=== PATIENT | female | born 1980 | race African-American/Black ===

== ENCOUNTER 2016-08-11 09:02 | Emergency (ER) | payer OTHER ==
[2016-08-11] MEDS ORDERED: KETOROLAC TROMETHAMINE 60 MG/2 ML SDV IM ONE (09:54)
--- NOTE | 2016-08-11 10:00 | ER Document Report ---
HPI - HPI Pain Level: 4 Context: 35 yo female presents with 2 separate complaints. #1 sinus pain and congestion x 3 weeks. no fever, + facial pain, + purulent drainage, + sore throat, + cough. Taking OTC decongestants without relief. #2 left low back pain with sciatica x 1 day. + hx/o sciatica, [facility] pt thinks coughing has aggrevated her sciatica. no bowel/bladder change, no paresthesias. walks without difficulty Associated Symptoms: Nonproductive cough, Headache, Sore throat, Other - back pain. denies: Hurts to breath, Nausea, Vomiting Exacerbated by: Movement Relieved by: Denies Similar symptoms previously: Yes Recently seen / treated by doctor: No - REPRODUCTIVE Reproductive: DENIES: : - DERM Skin Color: Normal, [place] Past Medical History - General Information source: Patient - Social History Smoking Status: Current Every Day Smoker Chew tobacco use (# tins/day): No Frequency of alcohol use: Occasional Drug Abuse: None Lives with: Family Family History: Reviewed & Not Pertinent Endocrine Medical History: Reports: Hx Diabetes Mellitus Type 2 - gestational DM x 1 - G2, P2, A0, anemia Renal/ Medical History: Denies: Hx Kidney Stones, Hx Peritoneal Dialysis Musculoskeltal Medical History: Reports Hx Arthritis, Denies Hx Gout, Reports Other - chronic low back pain with sciatica - Immunizations Hx Diphtheria, Pertussis, Tetanus Vaccination: Yes - 2008 [facility] Provider Document - CONSTITUTIONAL Agree With Documented VS: Yes Exam Limitations: No Limitations General Appearance: WD/WN, No Apparent Distress - INFECTION CONTROL TRAVEL OUTSIDE OF THE [place] IN LAST 30 DAYS: No - HEENT HEENT: Atraumatic, PERRLA, Pharyngeal Erythema Notes: + frontal and ethmoid sinus tap tenderness. - NECK Neck: Normal Inspection, Supple - RESPIRATORY Respiratory: Breath Sounds Normal, No Respiratory Distress O2 Sat by Pulse Oximetry: 99 - CARDIOVASCULAR Cardiovascular: Regular Rate, Regular Rhythm - GI/ABDOMEN Gastrointestinal: Abdomen Soft, Abdomen Non-Tender - BACK Back: Abnormal Inspection - + left lumbar paraspinal tenderness. + left SI tenderness. negative SLT. able to change position and walk without difficulty - MUSCULOSKELETAL/EXTREMETIES Musculoskeletal/Extremeties: MAEW, FROM - NEURO Level of Consciousness: Awake, Alert, Appropriate Motor/Sensory: No Motor Deficit, No Sensory Deficit - DERM Integumentary: Warm, Dry Course - Vital Signs Vital signs: Temp Pulse Resp BP Pulse Ox 98.2 F 72 18 130/85 H 99 08/11/16 09:03 08/11/16 09:03 08/11/16 09:03 08/11/16 09:03 08/11/16 09:03 Discharge - Discharge Clinical Impression: Sinusitis Qualifiers: Sinusitis location: unspecified location Chronicity: acute Recurrence: non- recurrent Qualified Code(s): J01.90 - Acute sinusitis, unspecified Low back pain Qualifiers: Chronicity: chronic Back pain laterality: left Sciatica presence: with sciatica Sciatica laterality: sciatica of left side Qualified Code(s): M54.42 - Lumbago with sciatica, left side; G89.29 - Other chronic pain Condition: Stable Disposition: HOME, SELF-CARE Instructions: Sinusitis ([facility]), Antibiotic Therapy ([facility]), Low Back Pain ([facility]), Sciatica ([facility]), Toradol Injection ([facility]), Muscle Relaxers ([facility]), Ibuprofen ( General) ([facility]), Ice Packs ([facility]) Additional Instructions: Adelina, Take all meds as prescribed continue OTC mucinex in addition to prescribed meds push water intake apply ice to painful area on back follow up with your primary care for further evaluation and treatment of your chronic back pain Prescriptions: Amoxicillin 875 mg PO BID #20 tablet Fluconazole [Diflucan] 150 mg PO ONCE PRN #1 tablet PRN Reason: Ibuprofen [Motrin 800 Mg Tablet] 800 mg PO Q6H #20 tablet Methocarbamol [Robaxin 500 Mg Tablet] 1,000 mg PO Q6 #30 tablet Forms: Return to Work
[2016-08-11 10:28] VITALS: BP 127/83
== END 2016-08-11 10:29 | disposition home or self-care (01) ==
LOC: ER 09:02
DX: J01.90 Acute sinusitis, unspecified (principal); M54.42 Lumbago with sciatica, left side; R51 Headache; F17.200 Nicotine dependence, unspecified, uncomplicated
CPT/HCPCS: 99283; 96372; J1885

== ENCOUNTER 2016-09-16 10:51 | Emergency (ER) | payer OTHER ==
--- NOTE | 2016-09-16 11:19 | ER Document Report ---
ED Medical Screen (RME) - General Chief Complaint: Chest Pain Stated Complaint: BACK/CHEST PAIN Time Seen by Provider: 09/16/16 11:04 Mode of Arrival: Ambulatory Notes: Patient presents to the emergency department with left-sided neck pain hurts to turn her head to the left hurts with touch. Patient also reports that her chest hurts in different positions and when she takes a deep breath. EKG SR. She reports the neck starting hurting a couple days ago, the chest hurt this morning. She also complained that her left arm goes numb with different positions. Denies other symptoms such as fever vomiting diarrhea. Denies history of cardiac disease. TRAVEL OUTSIDE OF THE [place] IN LAST 30 DAYS: No - Related Data Allergies/Adverse Reactions: hydrocodone [Hydrocodone] Allergy (Intermediate, Verified 09/16/16 10:53) itching Sulfa (Sulfonamide Antibiotics) Allergy (Verified 09/16/16 10:53) Hives Past Medical History Endocrine Medical History: Reports: Hx Diabetes Mellitus Type 2 - gestational DM x 1 - G2, P2, A0, anemia Renal/ Medical History: Denies: Hx Kidney Stones, Hx Peritoneal Dialysis Musculoskeltal Medical History: Reports Hx Arthritis, Denies Hx Gout - Immunizations Hx Diphtheria, Pertussis, Tetanus Vaccination: Yes - 2008 Physical Exam - Vital signs Vitals: Temp Pulse Resp BP Pulse Ox 98.6 F 61 14 133/78 H 97 09/16/16 10:53 09/16/16 10:53 09/16/16 10:53 09/16/16 10:53 09/16/16 10:53 Course - Vital Signs Vital signs: Temp Pulse Resp BP Pulse Ox 98.6 F 61 14 133/78 H 97 09/16/16 10:53 09/16/16 10:53 09/16/16 10:53 09/16/16 10:53 09/16/16 10:53
--- NOTE | 2016-09-16 12:24 | ER Document Report ---
HPI - HPI Pain Level: 4 Context: Patient is a 35-year-old female comes to the office complaining of left sided neck pain for the last 3 days, midsternal chest pain that began this morning, and an incident of left arm numbness. The neck pain began 3 days ago when she woke up from sleeping. No traumatic incident. The pain will radiate down into her shoulder. Her arm became numb when she tried to stretch her arm and neck out at the same time this morning. She has difficulty turning her head to the left and to the right. Patient describes the discomfort as a spasm and stiff neck. She has not had any other incident of arm numbness. The chest discomfort was first noticed this morning when she tried to take a deep breath. Is able to ambulate without any difficulties. Patient states that she does have a driveway that is up feel that she is able to walk without any problems. The pain is also worsened with upper trunk movement. The pain is described as a soreness. The pain does not radiate. No known trauma. No fever, URI, sore throat, shortness of breath, dyspnea, PND, palpitations, syncope, abdominal pain , N/V/D/C, dysuria, changes in mentation, trouble with gait or balance, muscle weakness, or rash. - ROS Notes: REVIEW OF SYSTEMS: CONSTITUTIONAL : Denies fever, chills, or sweats. Denies recent illness. EENT: Denies eye, ear, throat, or mouth pain or symptoms. Denies nasal or sinus congestion or discharge. Denies throat, tongue, or mouth swelling or difficulty swallowing. CARDIOVASCULAR: see above. Denies palpitations or racing or irregular heart beat. Denies ankle edema. RESPIRATORY: Denies cough, cold, or chest congestion. Denies shortness of breath, difficulty breathing, or wheezing. GASTROINTESTINAL: Denies abdominal pain or distention. Denies nausea, vomiting , or diarrhea. Denies blood in vomitus, stools, or per rectum. Denies black, tarry stools. Denies constipation. GENITOURINARY: Denies difficulty urinating, painful urination, burning, frequency, blood in urine, or discharge. MUSCULOSKELETAL: see above. SKIN: Denies rash, lesions or sores. HEMATOLOGIC : Denies easy bruising or bleeding. LYMPHATIC: Denies swollen, enlarged glands. NEUROLOGICAL: Denies confusion or altered mental status. Denies passing out or loss of consciousness. Denies dizziness or lightheadedness. Denies headache. Denies weakness or paralysis or loss of use of either side. Denies problems with gait or speech. Denies sensory loss, numbness, or tingling. Denies seizures. PSYCHIATRIC: Denies anxiety or stress. Denies depression, suicidal ideation, or homicidal ideation. ALL OTHER SYSTEMS REVIEWED AND NEGATIVE. Dictation was performed using [employer] voice recognition software - REPRODUCTIVE Reproductive: DENIES: : - DERM Skin Color: Normal Past Medical History - Social History Smoking Status: Current Every Day Smoker - smoking cessation counseling 2 mins Smoking Education Provided: Yes - 2 minutes Family History: Reviewed & Not Pertinent Patient has suicidal ideation: No Patient has homicidal ideation: No Endocrine Medical History: Reports: Hx Diabetes Mellitus Type 2 - gestational DM x 1 - G2, P2, A0, anemia Renal/ Medical History: Denies: Hx Kidney Stones, Hx Peritoneal Dialysis Musculoskeltal Medical History: Reports Hx Arthritis, Denies Hx Gout - Immunizations Hx Diphtheria, Pertussis, Tetanus Vaccination: Yes - 2008 [facility] Provider Document - CONSTITUTIONAL Notes: PHYSICAL EXAMINATION: GENERAL: Well-appearing, well-nourished and in no acute distress. HEAD: Atraumatic, normocephalic. EYES: Pupils equal round and reactive to light, extraocular movements intact, conjunctiva are normal. ENT: Nares patent, oropharynx clear without exudates. Moist mucous membranes. EAC's clear bilaterally. TMs intact bilaterally without erythema fluid or perforation. No tonsillar hypertrophy or erythema. No sinus tenderness. NECK: LROM to left lateral rotation > Rt lateral rotation. No deformity noted, ecchymosis, erythema, or abrasion. Spurling negative. + tenderness to palpation of the left paraspinal c-spine mm. + tenderness into the trapezius mm as well. LUNGS: Breath sounds clear to auscultation bilaterally and equal. No wheezes rales or rhonchi. Chest: No erythema, abrasion, ecchymosis, or deformity noted. + tenderness to palpation of the costochondral area near rib(s) 3-4. Tenderness elicited corresponds to the pain described. HEART: Regular rate and rhythm without murmurs ABDOMEN: Soft, nontender, nondistended abdomen. No guarding, no rebound. No masses appreciated. Normal bowel sounds present. CVA tenderness negative bilaterally. Musculoskeletal: FROM to passive/active shoulders/arms b/l. Strength 5+/5. Non- tender. Sensation intact. 2+ periph pulses. 2+ reflexes. Extremities: No cyanosis/clubbing/edema b/l. Peripheral pulses 2+. Capillary refill less than 3 seconds. NEUROLOGICAL: Cranial nerves grossly intact. Normal speech, normal gait. Normal sensory, motor exams PSYCH: Normal mood, normal affect. SKIN: Warm, Dry, normal turgor, no rashes or lesions noted. - INFECTION CONTROL TRAVEL OUTSIDE OF THE [place] IN LAST 30 DAYS: No - RESPIRATORY O2 Sat by Pulse Oximetry: 97 Course - Re-evaluation Re-evalutation: Adelina is a 35-year-old female who presents with suspected cervicalgia and costochondritis based on H&P. She is in no acute distress and vital signs are stable. EKG shows normal sinus rhythm without any significant ST-T changes. We will send her for a C-spine x-ray. We will wait for the formal read before discharge. Pending negative x-ray we will treat her conservatively with Flexeril and Mobic. She is advised not to drive or operate heavy machinery while on the Flexeril. She is instructed to use a more supportive pillow at night. She is to perform light stretches daily with the use of ice and heat. Light massage may help. I would [facility] for [facility]. I will tentatively place her on light duty until her [facility] the [facility]. If she notices any worsening symptoms of shortness of breath, chest pain, trouble breathing, fever, pain, and/or stiffness to return to the ED and call her PCM. Patient in agreement with plan. 09/16/16 12:30 09/16/16 13:18 C-spine x-ray impression: No significant radiographic findings in the cervical spine. Patient to be discharged as directed above. 09/16/16 13:20 After performing a Medical Screening Examination, I estimate there is LOW risk for RUPTURED ESOPHAGUS, PNEUMOTHORAX, PULMONARY EMBOLISM, ACUTE CORONARY SYNDROME, OR THORACIC AORTIC DISSECTION, thus I consider the discharge disposition reasonable. I have reevaluated this patient multiple times and no significant life threatening changes are noted. The patient and I have discussed the diagnosis and risks, and we agree with discharging home with close follow-up. We also discussed returning to the Emergency Department immediately if new or worsening symptoms occur. We have discussed the symptoms which are most concerning (e.g., bloody sputum, worsening pain or shortness of breath) that necessitate immediate return. 09/16/16 13:21 09/16/16 13:24 - Vital Signs Vital signs: Temp Pulse Resp BP Pulse Ox 98.6 F 61 14 133/78 H 97 09/16/16 10:53 09/16/16 10:53 09/16/16 10:53 09/16/16 10:53 09/16/16 10:53 Discharge - Discharge Clinical Impression: Cervicalgia, Costochondritis, acute Condition: Stable Disposition: HOME, SELF-CARE Instructions: Chest Wall Pain ([facility]) Additional Instructions: Muscle Relaxers Muscle relaxing medications are usually prescribed for acute muscle spasm or injury to the neck and back. They are often combined with antiinflammatory pain medication for increased relief. You may stop the muscle relaxer when the pain and stiffness have improved. Start the medication again if spasms recur. Muscle relaxers may cause drowsiness, especially with the first dose. Do not operate machinery or drive while under the effects of the medication. Most muscle relaxers last up to 24 hours. Do not combine the medication with alcohol. Neck pain supportive pillow at night. perform light stretches daily with the use of ice and heat. tylenol/mobic as needed for pain. [facility]. If any worsening shortness of breath, chest pain, trouble breathing, fever, pain, and/or stiffness to return to the ED and call your PCM. Prescriptions: Cyclobenzaprine HCl [Flexeril 10 mg Tablet] 10 mg PO TIDP PRN #15 tab PRN Reason: Meloxicam [Mobic 7.5 Mg Tablet] 7.5 mg PO BID PRN #30 tablet PRN Reason: Forms: Smoking Cessation Education
--- NOTE | 2016-09-16 13:07 | RADIOLOGY REPORT (SQ) ---
EXAM DESCRIPTION: CERV SP 4 OR 5 VIEWS COMPLETED DATE/TIME: 09/16/2016 12:58 pm REASON FOR STUDY: cervicalgia (left sided) COMPARISON: None. NUMBER OF VIEWS: Five views. TECHNIQUE: AP, lateral, obliques and odontoid radiographic images acquired of the cervical spine. LIMITATIONS: None. FINDINGS: MINERALIZATION: Normal. ALIGNMENT: Anatomic. VERTEBRAE: Vertebral bodies of normal height. DISCS: No significant osteophytes or sclerosis. Disc height maintained. FORAMINA: No osteophytes or foraminal narrowing. LATERAL AND POSTERIOR ELEMENTS: Facets, lateral masses and spinous processes without significant find ings. HARDWARE: None in the spine. SOFT TISSUES: No masses or calcifications. Lung apices clear. OTHER: No other significant finding. IMPRESSION: NO SIGNIFICANT RADIOGRAPHIC FINDING IN THE CERVICAL SPINE. TECHNICAL DOCUMENTATION: JOB ID: [id number] [employer]- All Rights Reserved
[2016-09-16 13:45] VITALS: BP 125/79
--- NOTE | 2016-09-17 08:57 | EKG REPORT ---
SEVERITY:- BORDERLINE ECG - SINUS RHYTHM [facility] : Confirmed by: Vira Garcia 17-Sep-2016 08:56:39
== END 2016-09-16 13:46 | disposition home or self-care (01) ==
LOC: ER 10:51
DX: M54.2 Cervicalgia (principal); M94.0 Chondrocostal junction syndrome [Tietze]; R07.9 Chest pain, unspecified; F17.200 Nicotine dependence, unspecified, uncomplicated
CPT/HCPCS: 72050; 93005; 93010; 99285

== ENCOUNTER 2016-09-17 16:41 | Emergency (ER) | payer OTHER ==
[2016-09-17] MEDS ORDERED: HYDROMORPHONE HCL INJ/PF 2 MG/ML AMPULE IM ONE (17:31)
--- NOTE | 2016-09-17 17:33 | ER Document Report ---
HPI - HPI Patient complains to provider of: Neck pain Onset: Other - 5 days Onset/Duration: Persistent Quality of pain: Sharp Pain Level: 5 Context: Patient states that she woke up with neck pain 5 days ago. Patient states since then she has had continued neck pain. Patient denies any injury. Patient states pain worsens whenever she rotates her head laterally. Pt Was seen for this complaint recently and placed on Mobic and Flexeril. Patient denies any improvement of her symptoms. Associated Symptoms: Other - neck pain. denies: Fever, Headache Exacerbated by: Movement Relieved by: Denies Similar symptoms previously: Yes Recently seen / treated by doctor: Yes - ROS ROS below otherwise negative: Yes Systems Reviewed and Negative: Yes All other systems reviewed and negative - CONSTITUTIONAL Constitutional: DENIES: Fever, Chills - NEURO Neurology: DENIES: Headache, Weakness - CARDIOVASCULAR Cardiovascular: DENIES: Chest pain - RESPIRATORY Respiratory: DENIES: Coughing - GASTROINTESTINAL Gastrointestinal: DENIES: Nausea, Patient vomiting - REPRODUCTIVE Reproductive: DENIES: : - MUSCULOSKELETAL Musculoskeletal: REPORTS: Back Pain, Neck Pain - DERM Skin Color: Normal Skin Problems: None Past Medical History - General Information source: Patient - Social History Smoking Status: Current Every Day Smoker Frequency of alcohol use: None Drug Abuse: None Occupation: shipping Lives with: Family Family History: Reviewed & Not Pertinent Patient has suicidal ideation: No Patient has homicidal ideation: No Endocrine Medical History: Reports: Hx Diabetes Mellitus Type 2 - gestational DM x 1 - G2, P2, A0, anemia Renal/ Medical History: Denies: Hx Kidney Stones, Hx Peritoneal Dialysis Musculoskeltal Medical History: Reports Hx Arthritis, Denies Hx Gout Surgical Hx: Negative - Immunizations Hx Diphtheria, Pertussis, Tetanus Vaccination: Yes - 2009 [employer] Provider Document - CONSTITUTIONAL Agree With Documented VS: Yes Exam Limitations: No Limitations General Appearance: WD/WN, No Apparent Distress - INFECTION CONTROL TRAVEL OUTSIDE OF THE [place] IN LAST 30 DAYS: No - HEENT HEENT: Atraumatic, Normocephalic - NECK Neck: negative: Lymphadenopathy-Left, Lymphadenopathy-Right - RESPIRATORY Respiratory: Breath Sounds Normal, No Respiratory Distress O2 Sat by Pulse Oximetry: 98 - CARDIOVASCULAR Cardiovascular: Regular Rate, Regular Rhythm, No Murmur Pulses: Normal: Radial - BACK Back: Abnormal Inspection - left trapezius muscle tenderness, spasm - MUSCULOSKELETAL/EXTREMETIES Musculoskeletal/Extremeties: NENA, FROM Notes: normal strength bilat UE 5/5 - NEURO Level of Consciousness: Awake, Alert, Appropriate Motor/Sensory: No Motor Deficit, No Sensory Deficit - DERM Integumentary: Warm, Dry, No Rash Course - Re-evaluation Re-evalutation: 09/17/16 17:[address] owens who advises getting ct cervical spine 09/17/16 19:00 The patient has been informed that they may have pre-hypertension or hypertension based on a blood pressure reading in the emergency department. I recommend that patient call the primary care provider listed on their discharge instructions or a physician of their choice by this week to arrange follow-up for further evaluation of possible pre-hypertension her hypertension. Pt given a copy of her CT report, patient encouraged to follow-up with her primary doctor for further evaluation of thyroid mass. Patient verbalized understanding and agrees with plan of care. Plan of care regarding patient's cervicalgia, suspect patient is having muscle spasm without any concern for spinal cord abnormality at this time. Discussed plan of care with patient, patient verbalized understanding and agrees with plan of care. 09/17/16 21:14 - Vital Signs Vital signs: Temp Pulse Resp BP Pulse Ox 98.5 F 61 16 142/99 H 98 09/17/16 16:45 09/17/16 16:45 09/17/16 16:45 09/17/16 16:45 09/17/16 16:45 - Diagnostic Test Radiology reviewed: Reports reviewed Discharge - Discharge Clinical Impression: Thyroid nodule, Trapezius muscle spasm Cervical strain, acute Qualifiers: Encounter type: initial encounter Qualified Code(s): S16.1XXA - Strain of muscle, fascia and tendon at neck level, initial encounter Condition: Stable Disposition: HOME, SELF-CARE Instructions: Muscle Strain ([facility]), Neck Injury (Cervical Strain) ([facility]), Oral Narcotic Medication ([facility]), Growth or Mass, Pending Workup ([facility]) Additional Instructions: Return immediately for any new or worsening symptoms Followup with your primary care provider, call tomorrow to make a followup appointment Follow-up with your primary care provider to recheck your blood pressure, it was mildly elevated today. Follow up with your primary doctor for further evaluation of thyroid nodule, call Tuesday for an appointment Prescriptions: Oxycodone HCl/Acetaminophen [Percocet 5-325 mg Tablet] 1 - 2 tab PO ASDIR PRN # 20 tablet PRN Reason: Referrals: [facility] [Provider Group] - 09/20/16
--- NOTE | 2016-09-17 18:10 | RADIOLOGY REPORT (SQ) ---
EXAM DESCRIPTION: CT CERVICAL SPINE WITHOUT COMPLETED DATE/TIME: 09/17/2016 5:59 pm REASON FOR STUDY: neck pain, L arm pain COMPARISON: None. TECHNIQUE: Axial images acquired through the cervical spine without intravenous contrast. Images re viewed with lung, soft tissue and bone windows. Reconstructed coronal and sagittal MPR images review ed. Images stored on PACS. All CT scanners at this facility use dose modulation, iterative reconstruction, and/or weight based d osing when appropriate to reduce radiation dose to as low as reasonably achievable (ALARA). [facility]: Dose Right [facility]: CareDose [facility]: Dose Right [facility]: Teradose 4D [facility]: Quofore RADIATION DOSE: 22.29 mGy. LIMITATIONS: None. FINDINGS: ALIGNMENT: Anatomic. MINERALIZATION: Normal. VERTEBRAL BODIES: No fractures or dislocation. DISCS: No significant disc disease. FACETS, LATERAL MASSES, POSTERIOR ELEMENTS: No fractures. No dislocation. No acute findings. HARDWARE: None in the spine. VISUALIZED RIBS: No fractures. LUNG APICES AND SOFT TISSUES: No significant or acute findings. OTHER: There is a large low-density nodule in the right lobe of the thyroid gland. This measures 24 mm. IMPRESSION: 1. Normal cervical spine. There are no findings to explain the patient's symptoms. 2. Large right thyroid nodule. TECHNICAL DOCUMENTATION: JOB ID: [id number] Quality ID # [id number]: Final reports with documentation of one or more dose reduction techniques (e.g., Au tomated exposure control, adjustment of the mA and/or kV according to patient size, use of iterative reconstruction technique) 2010 [employer]- All Rights Reserved
[2016-09-17 19:19] VITALS: BP 150/87
== END 2016-09-17 19:21 | disposition home or self-care (01) ==
LOC: ER 16:41
DX: S16.1XXA Strain of muscle, fascia and tendon at neck level, initial encounter (principal); M54.2 Cervicalgia; E04.1 Nontoxic single thyroid nodule; M62.830 Muscle spasm of back; X58.XXXA Exposure to other specified factors, initial encounter; F17.200 Nicotine dependence, unspecified, uncomplicated
CPT/HCPCS: 99283; 96372; 72125; J1170

== ENCOUNTER 2016-11-03 08:28 | Emergency (ER) | payer OTHER ==
--- NOTE | 2016-11-03 10:19 | ER Document Report ---
ED GI/ - General Chief Complaint: Nausea/Vomiting/Diarrhea Stated Complaint: POSSIBLE ALLERGIC REACTION Time Seen by Provider: 11/03/16 09:18 Mode of Arrival: Ambulatory Information source: Patient Notes: Patient is a 36-year-old female who presents to the ER today for nausea, vomiting, diarrhea that began when she woke up at 6 AM this morning. She denies any abdominal pain. She does state that she woke up "covered in sweat." She admits that 2 and half episodes of vomiting and one episode of runny stool this morning. She is unsure if it is because she tried Robaxin for the first time last night before bedtime for her chronic back pain that was just prescribed by the [facility]. Patient states that her meloxicam actually worked better but that they have stopped sending that her. She denies any fevers, chills, sick contacts that she knows of. TRAVEL OUTSIDE OF THE [place] IN LAST 30 DAYS: No - Related Data Allergies/Adverse Reactions: hydrocodone [Hydrocodone] Allergy (Intermediate, Verified 11/03/16 08:29) itching Sulfa (Sulfonamide Antibiotics) Allergy (Verified 11/03/16 08:29) Hives Past Medical History - General Information source: Patient - Social History Smoking Status: Current Every Day Smoker Chew tobacco use (# tins/day): No Frequency of alcohol use: None Drug Abuse: None Family History: Reviewed & Not Pertinent Patient has suicidal ideation: No Patient has homicidal ideation: No Endocrine Medical History: Reports: Hx Diabetes Mellitus Type 2 - gestational DM x 1 - G2, P2, A0, anemia Renal/ Medical History: Denies: Hx Kidney Stones, Hx Peritoneal Dialysis Musculoskeltal Medical History: Reports Hx Arthritis, Denies Hx Gout Surgical Hx: Negative - Immunizations Hx Diphtheria, Pertussis, Tetanus Vaccination: Yes - 2008 Review of Systems - Review of Systems Constitutional: See HPI EENT: No symptoms reported Cardiovascular: No symptoms reported Respiratory: No symptoms reported Gastrointestinal: See HPI Genitourinary: No symptoms reported Female Genitourinary: No symptoms reported Musculoskeletal: No symptoms reported Skin: No symptoms reported Hematologic/Lymphatic: No symptoms reported Neurological/Psychological: No symptoms reported Physical Exam - Vital signs Vitals: Temp Pulse Resp BP Pulse Ox 97.9 F 66 18 146/93 H 99 11/03/16 08:37 11/03/16 08:37 11/03/16 08:37 11/03/16 08:37 11/03/16 08:37 - Notes Notes: PHYSICAL EXAMINATION: GENERAL: Well-appearing and in no acute distress. HEAD: Atraumatic, normocephalic. EYES: Pupils equal round and reactive to light, extraocular movements intact, sclera anicteric, conjunctiva are normal. ENT: ear canals without erythema or foreign body, TMs pearly hernandes with good bony landmarks, nares patent, oropharynx clear without exudates. Moist mucous membranes. NECK: Normal range of motion, supple without lymphadenopathy LUNGS: CTAB and equal. No wheezes rales or rhonchi. HEART: Regular rate and rhythm without murmurs ABDOMEN: Soft, no tenderness. No guarding, no rebound BACK: no vertebral tenderness, normal ROM GI/: no CVA tenderness EXTREMITIES: Normal range of motion, no pitting edema. No cyanosis. NEUROLOGICAL: Cranial nerves grossly intact. Normal sensory/motor exams. PSYCH: Normal mood, normal affect. SKIN: Warm, Dry, normal turgor, no rashes or lesions noted Course - Vital Signs Vital signs: Temp Pulse Resp BP Pulse Ox 97.9 F 66 18 146/93 H 99 11/03/16 08:37 11/03/16 08:37 11/03/16 08:37 11/03/16 08:37 11/03/16 08:37 Discharge - Discharge Clinical Impression: Nausea & vomiting Qualifiers: Vomiting type: unspecified Vomiting Intractability: non-intractable Qualified Code(s): R11.2 - Nausea with vomiting, unspecified Diarrhea Qualifiers: Diarrhea type: unspecified type Qualified Code(s): R19.7 - Diarrhea, unspecified Condition: Stable Disposition: HOME, SELF-CARE Additional Instructions: Return immediately for any new or worsening symptoms. Follow up with primary care provider, call tomorrow to make followup appointment. Prescriptions: Meloxicam 7.5 mg PO BID #30 tablet Ondansetron [Zofran Odt 4 mg Tablet] 1 - 2 tab PO Q4H PRN #15 tab.rapdis PRN Reason: For Nausea/Vomiting Forms: Return to Work
[2016-11-03 10:30] VITALS: BP 153/110
== END 2016-11-03 10:26 | disposition home or self-care (01) ==
LOC: ER 08:28
DX: R11.2 Nausea with vomiting, unspecified (principal); R19.7 Diarrhea, unspecified; G89.29 Other chronic pain; M54.9 Dorsalgia, unspecified; Z88.2 Allergy status to sulfonamides; F17.200 Nicotine dependence, unspecified, uncomplicated; Z88.6 Allergy status to analgesic agent
CPT/HCPCS: 99283

== ENCOUNTER 2017-06-03 06:58 | Emergency (ER) | payer OTHER ==
[2017-06-03] MEDS ORDERED: METHYLPREDNISOLONE INJ 125 MG/2 ML SDV IM ONE (08:19)
--- NOTE | 2017-06-03 08:20 | ER Document Report ---
ED Neck/Back Problem - General Chief Complaint: Back Pain Stated Complaint: FALL, BACK PAIN Time Seen by Provider: 06/03/17 07:42 Mode of Arrival: Ambulatory Information source: Patient Notes: Patient is a 36-year-old female who presents to the ER today for low back pain and left-sided sciatica. Patient states that this caused her left leg to give out on her and she fell 2 days ago, injuring the left lower back more. Patient has a history of sciatica and takes Robaxin daily for it. Patient states that her legs have given out before with her sciatica symptoms. She denies any loss of bladder or bowel function. TRAVEL OUTSIDE OF THE [place] IN LAST 30 DAYS: No - Related Data Allergies/Adverse Reactions: hydrocodone [Hydrocodone] Allergy (Intermediate, Verified 11/03/16 08:29) itching Sulfa (Sulfonamide Antibiotics) Allergy (Verified 11/03/16 08:29) Hives Past Medical History - General Information source: Patient - Social History Smoking Status: Unknown if Ever Smoked Chew tobacco use (# tins/day): No Frequency of alcohol use: Rare Drug Abuse: None Family History: Reviewed & Not Pertinent Patient has suicidal ideation: No Patient has homicidal ideation: No Endocrine Medical History: Reports: Hx Diabetes Mellitus Type 2 - gestational DM x 1 - G2, P2, A0, anemia Renal/ Medical History: Denies: Hx Kidney Stones, Hx Peritoneal Dialysis Musculoskeltal Medical History: Reports Hx Arthritis, Denies Hx Gout - Immunizations Hx Diphtheria, Pertussis, Tetanus Vaccination: Yes - 2008 Review of Systems - Review of Systems Constitutional: No symptoms reported EENT: No symptoms reported Cardiovascular: No symptoms reported Respiratory: No symptoms reported Gastrointestinal: No symptoms reported Genitourinary: No symptoms reported Female Genitourinary: No symptoms reported Musculoskeletal: See HPI Skin: No symptoms reported Hematologic/Lymphatic: No symptoms reported Neurological/Psychological: No symptoms reported Physical Exam - Vital signs Vitals: Temp Pulse Resp BP Pulse Ox 98.6 F 74 18 135/93 H 99 06/03/17 07:04 06/03/17 07:04 06/03/17 07:04 06/03/17 07:04 06/03/17 07:04 - Notes Notes: PHYSICAL EXAMINATION: GENERAL: Well-appearing and in no acute distress. HEAD: Atraumatic, normocephalic. EYES: Pupils equal round and reactive to light, extraocular movements intact, sclera anicteric, conjunctiva are normal. NECK: Normal range of motion, supple without lymphadenopathy LUNGS: CTAB and equal. No wheezes rales or rhonchi. HEART: Regular rate and rhythm without murmurs ABDOMEN: Soft, no tenderness. No guarding, no rebound BACK: Mild lumbar vertebral tenderness and left SI joint tenderness, limited range of motion secondary to pain GI/: no CVA tenderness EXTREMITIES: Normal range of motion, no pitting edema. No cyanosis. NEUROLOGICAL: Cranial nerves grossly intact. Normal sensory/motor exams. PSYCH: Normal mood, normal affect. SKIN: Warm, Dry, normal turgor, no rashes or lesions noted Course - Re-evaluation Re-evalutation: 06/03/17 09:24 Lumbar x-ray and left hip x-ray negative for any acute pathology. Will treat patient for acute sciatica. - Vital Signs Vital signs: Temp Pulse Resp BP Pulse Ox 98.6 F 74 18 135/93 H 99 06/03/17 07:04 06/03/17 07:04 06/03/17 07:04 06/03/17 07:04 06/03/17 07:04 Discharge - Discharge Clinical Impression: Sciatica Qualifiers: Laterality: left Qualified Code(s): M54.32 - Sciatica, left side Condition: Stable Disposition: HOME, SELF-CARE Additional Instructions: Return immediately for any new or worsening symptoms. Follow up with primary care provider, call tomorrow to make followup appointment. Prescriptions: Cyclobenzaprine HCl [Flexeril 10 mg Tablet] 10 mg PO TIDP PRN #15 tab PRN Reason: Ibuprofen [Motrin 800 mg Tablet] 800 mg PO Q8H PRN #30 tab PRN Reason: Forms: Return to Work
--- NOTE | 2017-06-03 09:16 | RADIOLOGY REPORT (SQ) ---
EXAM DESCRIPTION: L SPINE WHOLE COMPLETED DATE/TIME: 06/03/2017 8:45 am REASON FOR STUDY: fall, pain COMPARISON: None. NUMBER OF VIEWS: Five views including obliques. TECHNIQUE: AP, lateral, oblique, and sacral radiographic images acquired of the lumbar spine. LIMITATIONS: None. FINDINGS: SEGMENTATION: 5 lumbar type vertebra noted. ALIGNMENT: Normal. VERTEBRAE: Maintained height. No fracture or worrisome bone lesion. DISCS: Preserved height. No significant osteophytes or end plate irregularity. POSTERIOR ELEMENTS: Pedicles and facets are intact. No pars defect or posterior arch defects. HARDWARE: None in the spine. PARASPINAL SOFT TISSUES: Normal. PELVIS: Intact as visualized. No fractures or worrisome bone lesions. SI joints intact. OTHER: No other significant finding. IMPRESSION: NORMAL VIEW LUMBAR SPINE. TECHNICAL DOCUMENTATION: JOB ID: [id number] SC-[id number] 2010 [employer]- All Rights Reserved
--- NOTE | 2017-06-03 09:20 | RADIOLOGY REPORT (SQ) ---
EXAM DESCRIPTION: HIP LEFT AP/LATERAL COMPLETED DATE/TIME: 06/03/2017 8:45 am REASON FOR STUDY: fall, pain COMPARISON: None. NUMBER OF VIEWS: Two views. TECHNIQUE: AP pelvis and additional frog-leg view of the left hip. LIMITATIONS: None. FINDINGS: MINERALIZATION: Normal. LEFT HIP: No abnormality seen. RIGHT HIP: No abnormality seen. PUBIS AND ISCHIUM: No abnormality seen. PELVIS: No fracture. SACRUM: No abnormality seen. Degenerative changes of the SI joints are noted. LOWER LUMBAR SPINE: No fracture or dislocation. No worrisome bone lesions. No significant disc disea se. SOFT TISSUES: No findings. IMPRESSION: NO ACUTE FRACTURE OR BONY ABNORMALITY IDENTIFIED. TECHNICAL DOCUMENTATION: JOB ID: [id number] SC-[id number] 2010 [employer]- All Rights Reserved
[2017-06-03 10:12] VITALS: BP 140/96
== END 2017-06-03 09:40 | disposition home or self-care (01) ==
LOC: ER 06:58
DX: M54.32 Sciatica, left side (principal); M54.5 Low back pain; M54.9 Dorsalgia, unspecified; W19.XXXA Unspecified fall, initial encounter
CPT/HCPCS: 99283; 96372; 73502; 72110; J2930

== ENCOUNTER 2017-08-16 06:08 | Emergency (ER) | payer OTHER ==
--- NOTE | 2017-08-16 07:59 | ER Document Report ---
ED General - General Chief Complaint: Abdominal Pain Stated Complaint: MEDICATION SIDE EFFECTS Time Seen by Provider: 08/16/17 07:59 Mode of Arrival: Ambulatory Information source: Patient TRAVEL OUTSIDE OF THE [place] IN LAST 30 DAYS: No - HPI Notes: 36-year-old female with a past medical history of sciatica takes Robaxin and meloxicam daily presents today with complaints of lower abdominal pain for x 5 days and states she has had dark bowel movements, denies any black tarry stool. Patient states she has not been taking meloxicam the last 3 days, but still is having abdominal cramping. Pain is 4 out of 10 cramping and intermittent. Patient also reports she has had 2 periods in July she is not in any control or hormone therapy. Has been sexually active and states there is a chance for . Denies any nausea or vomiting. Vaginal discharge. Has not tried any [id number]-ota-[id number] medications for symptoms. Denies fevers, chills , chest pain,palpitations, shortness of breath, dyspnea, nausea, vomiting, diarrhea, hematuria,blurred vision, double vision, loss of vision, speech changes, LH, dizziness, syncope, headaches, wheezing, ST, URI, neck pain, weakness, bowel or bladder dysfunction, saddle anesthesia, numbness or tingling in bilateral upper or lower extremities equally, muscle paralysis, weakness in bilateral upper or lower extremities equally or rash. Denies IV drug use. - Related Data Allergies/Adverse Reactions: hydrocodone [Hydrocodone] Allergy (Intermediate, Verified 08/16/17 07:48) itching Sulfa (Sulfonamide Antibiotics) Allergy (Verified 08/16/17 07:48) Hives Past Medical History - General Information source: Patient - Social History Smoking Status: Unknown if Ever Smoked Family History: Reviewed & Not Pertinent Endocrine Medical History: Reports: Hx Diabetes Mellitus Type 2 - gestational DM x 1 - G2, P2, A0, anemia Renal/ Medical History: Denies: Hx Kidney Stones, Hx Peritoneal Dialysis Musculoskeltal Medical History: Reports Hx Arthritis, Denies Hx Gout - Immunizations Hx Diphtheria, Pertussis, Tetanus Vaccination: Yes - 2008 Review of Systems - Review of Systems Constitutional: No symptoms reported EENT: No symptoms reported Cardiovascular: No symptoms reported Respiratory: No symptoms reported Gastrointestinal: See HPI Genitourinary: No symptoms reported Female Genitourinary: No symptoms reported Musculoskeletal: No symptoms reported Skin: No symptoms reported Hematologic/Lymphatic: No symptoms reported Neurological/Psychological: No symptoms reported Physical Exam - Vital signs Vitals: Temp Pulse Resp BP Pulse Ox 97.7 F 59 L 20 138/90 H 97 08/16/17 06:19 08/16/17 06:19 08/16/17 06:19 08/16/17 06:19 08/16/17 06:19 - Notes Notes: PHYSICAL EXAMINATION: GENERAL: Well-appearing, well-nourished and in no acute distress. HEAD: Atraumatic, normocephalic. EYES: Pupils equal round and reactive to light, extraocular movements intact, conjunctiva are normal. ENT: Nares patent, oropharynx clear without exudates. Moist mucous membranes. NECK: Normal range of motion, supple without lymphadenopathy LUNGS: Breath sounds clear to auscultation bilaterally and equal. No wheezes rales or rhonchi. HEART: Regular rate and rhythm without murmurs ABDOMEN: Soft, nondistended abdomen. Right lower quadrant and left lower quadrant tenderness on palpation, no distention. No guarding. Noted slight rebound with right lower quadrant tenderness no guarding, no rebound. No masses appreciated. No CVA tenderness appreciated bilaterally. Female : deferred Musculoskeletal: Normal range of motion, no pitting or edema. No cyanosis. NEUROLOGICAL: Cranial nerves grossly intact. Normal speech, normal gait. Normal sensory, motor exams PSYCH: Normal mood, normal affect. SKIN: Warm, Dry, normal turgor, no rashes or lesions noted. Course - Re-evaluation Re-evalutation: 08/16/17 12:04 Healthy 36-year-old female who is afebrile, vitals are stable and is in no distress presents for evaluation of lower abdominal pain as well as a sore throat that started today. CBC negative for any leukocytosis or anemia, CMP negative for any hepatic or renal dysfunction. No electrolyte disturbances noted. Urinalysis negative for UTI proteinuria. Transvaginal ultrasound shows that patient does have an enlarged fibroid uterus with complex hemorrhagic cysts seen bilaterally. CT abdomen pelvis negative for any intra-abdominal pathologies. Patient remains afebrile, vitals stable and in no distress. On reevaluation, patient states she feels much better. Patient likely is experiencing cramping due to the fact her endometrium is 15 mm along with hemorrhagic cysts. Patient has a low risk for acute pancreatitis, appendicitis bowel obstruction cholecystitis perforated diverticulitis, incarcerated hernia, PID, ectopic , perforated ulcer or tubo-ovarian abscess. There is no evidence of peritonitis, sepsis or toxicity. I have reevaluated this patient multiple times and no significant life threatening changes are noted. The patient and I have discussed the diagnosis and risks, and we agree with discharging home with close follow-up with the understanding that symptoms and presentations can change. We also discussed returning to the Emergency Department immediately if new or worsening symptoms occur. We have discussed the symptoms which are most concerning (e.g., bloody stool, fever, changing or worsening pain, vomiting) that necessitate immediate return. Discussed with her following up with her [employer] to start control as a possibility to help relieve her symptoms. At this time will discharge with return precautions and follow-up recommendations. Denies patient follow-up with [employer] and primary care provider. Take [id number] ibuprofen and Tylenol as needed for any abdominal cramping. Verbal discharge instructions given a the bedside and opportunity for questions given. Medication warnings reviewed. Patient is in agreement with this plan and has verbalized understanding of return precautions and the need for primary care follow-up in the next 24-72 hours. - Vital Signs Vital signs: Temp Pulse Resp BP Pulse Ox 97.7 F 56 L 18 149/101 H 100 08/16/17 12:48 08/16/17 12:48 08/16/17 12:48 08/16/17 12:48 08/16/17 12:48 - Laboratory Result Diagrams: 08/16/17 07:41 08/16/17 07:41 Laboratory results interpreted by me: 08/16/17 07:41 Chloride 108 H Glucose 111 H Lipase 573.4 H Discharge - Discharge Clinical Impression: Hemorrhagic ovarian cyst Condition: Good Disposition: HOME, SELF-CARE Instructions: Ovarian Cyst (OM) Additional Instructions: Ovarian Cyst Your examination shows the presence of an ovarian cyst. This is a ball of fluid attached to the ovary. Ovarian cysts in women of child-bearing age are usually innocent. However, the cyst may cause pain when it grows or bursts. An innocent ovarian cyst will usually go away by itself. When the cyst becomes painful, you should rest. Pain medication may be required. Some women find a hot water bottle soothing. The pain usually resolves within one or two days. After menopause, an ovarian cyst may mean a tumor, and requires more aggressive evaluation -- usually surgery is recommended to remove or biopsy the cyst. A very large cyst requires evaluation at any age. Most cysts (even the innocent ones) require follow-up examination. Call the doctor or return at any time if the pain increases significantly, if you become faint, or if you experience vaginal bleeding. Return immediately for any new or worsening symptoms. Follow up with primary care provider, call tomorrow to make followup appointment. Prescriptions: Ondansetron [Zofran Odt 4 mg Tablet] 1 - 2 tab PO Q4HP PRN #10 tab.rapdis PRN Reason: Forms: Return to Work Referrals: ORIN LLOYD MD [COMMUNITY BASED STAFF] - Follow up in 3-5 days OLIVER CHAVEZ MD [ACTIVE STAFF] - Follow up in 3-5 days
[2017-08-16 08:03] LABS: ABSOLUTE LYMPHOCYTES (AUTO) 1.8 10^3/uL (0.5-4.7); ABSOLUTE MONOCYTES (AUTO) 0.5 10^3/uL (0.1-1.4); BASOPHILS % (AUTO) 0.2 % (0-2); EOSINOPHILS % (AUTO) 0.7 % (0-6); HEMATOCRIT 38.9 % (36.0-47.0); HEMOGLOBIN 12.8 g/dL (12.0-15.5); LYMPHOCYTES % (AUTO) 41.9 % (13-45); MEAN CORPUSCULAR HEMOGLOBIN 28.4 pg (27.0-33.4); MEAN CORPUSCULAR HGB CONC 32.8 g/dL (32.0-36.0); MEAN CORPUSCULAR VOLUME 87 fl (80-97); PLATELET COUNT 244 10^3/uL (150-450); RED CELL DISTRIBUTION WIDTH 13.5 % (11.5-14.0); SEGMENTED NEUTROPHILS % (AUTO) 46.2 % (42-78); TOTAL CELLS COUNTED % (AUTO) 100 %; WHITE BLOOD COUNT 4.4 10^3/uL (4.0-10.5)
[2017-08-16 08:05] LABS: APPEARANCE,URINE CLEAR; BILIRUBIN,URINE NEGATIVE (NEGATIVE); COLOR,URINE YELLOW; GLUCOSE, URINE NEGATIVE (NEGATIVE); KETONES,URINE NEGATIVE (NEGATIVE); LEUKOCYTE ESTERASE,URINE NEGATIVE (NEGATIVE); NITRITE,URINE NEGATIVE (NEGATIVE); PROTEIN,URINE NEGATIVE (NEGATIVE); URINE SPECIFIC GRAVITY 1.027; UROBILINOGEN,URINE NEGATIVE mg/dL (<2.0)
[2017-08-16 08:22] LABS: ALANINE AMINOTRANSFERASE 24 U/L (9-52); ALBUMIN 4.2 g/dL (3.5-5.0); ALKALINE PHOSPHATASE 59 U/L (38-126); ANION GAP 9 (5-19); ASPARTATE AMINO TRANSFERASE 22 U/L (14-36); BILIRUBIN,DIRECT 0.2 mg/dL (0.0-0.4); BILIRUBIN,TOTAL 0.3 mg/dL (0.2-1.3); BLOOD UREA NITROGEN 16 mg/dL (7-20); CALCIUM 9.4 mg/dL (8.4-10.2); CARBON DIOXIDE 25 mmol/L (22-30); CHLORIDE 108 mmol/L (98-107); GLUCOSE 111 mg/dL (75-110); LIPASE 573.4 U/L (23-300); POTASSIUM 4.2 mmol/L (3.6-5.0); SODIUM 142.2 mmol/L (137-145); TOTAL PROTEIN 7.5 g/dL (6.3-8.2)
--- NOTE | 2017-08-16 11:42 | RADIOLOGY REPORT (SQ) ---
EXAM DESCRIPTION: U/S NON OB PEL TV W/DOPPLER COMPLETED DATE/TIME: 08/16/2017 10:50 am REASON FOR STUDY: pelvic pain x 5 days COMPARISON: None. TECHNIQUE: Dynamic and static grayscale images acquired of the pelvis via transvaginal approach and recorded on PACS. Additional selected color Doppler and spectral images recorded. LIMITATIONS: None. FINDINGS: UTERUS: Slightly lobular. Multiple fibroids. Largest is 3.7 cm. ENDOMETRIAL STRIPE: No focal or generalized thickening. No masses. CERVIX: No nabothian cysts. RIGHT ADNEXUM: No abnormal masses. RIGHT OVARY AND DOPPLER: Complex probably hemorrhagic cyst measuring 2.3 cm Normal arterial vascular flow without evidence for torsion. LEFT ADNEXUM: No abnormal masses. LEFT OVARY AND DOPPLER: Complex probable hemorrhagic cyst measuring 1.6 cm Normal arterial vascular f low without evidence for torsion. FREE FLUID: None noted. OTHER: No other significant finding. MEASUREMENTS: UTERUS: 8.2 x 6.4 x 6 cm ENDOMETRIAL STRIPE: Is 15.3 mm RIGHT OVARY: 3.5 x 1.8 x 2.3 cm LEFT OVARY: 3.6 x 2.2 x 2.2 cm IMPRESSION: Enlarged fibroid uterus. Complex probable hemorrhagic cysts bilateral. TECHNICAL DOCUMENTATION: JOB ID: [id number] [employer]- All Rights Reserved Reading location - IP/workstation name: [email or web address]
--- NOTE | 2017-08-16 12:04 | RADIOLOGY REPORT (SQ) ---
EXAM DESCRIPTION: CT ABD/PELVIS WITH IV ORAL COMPLETED DATE/TIME: 08/16/2017 11:46 am REASON FOR STUDY: abd pain with dark stool, hx chronic meloxicam right and left lower quadrant pain COMPARISON: None. TECHNIQUE: CT scan of the abdomen and pelvis performed using helical scanning technique with dynamic intravenous contrast injection. With oral contrast. Images reviewed with lung, soft tissue, and bon e windows. Reconstructed coronal and sagittal MPR images reviewed. Delayed images for evaluation of t he urinary system also acquired. All images stored on PACS. All CT scanners at this facility use dose modulation, iterative reconstruction, and/or weight based d osing when appropriate to reduce radiation dose to as low as reasonably achievable (ALARA). [facility]: Dose Right [facility]: CareDose [facility]: Dose Right [facility]: Teradose 4D [facility]: eVropa CONTRAST TYPE AND DOSE: contrast/concentration: Isovue 370.00 mg/ml; Total Contrast Delivered: 99.0 ml; Total Saline Delivered: 62.0 ml RENAL FUNCTION: None required. The patient is less than 50 years old. RADIATION DOSE: CT Rad equipment meets quality standard of care and radiation dose reduction techniq ues were employed. CTDIvol: 12.5 - 17.6 mGy. DLP: 1627 mGy-cm.. LIMITATIONS: None. FINDINGS: LOWER CHEST: No significant findings. No nodules or infiltrates. LIVER: Normal size. No masses. No dilated ducts. SPLEEN: Normal size. No focal lesions. PANCREAS: No masses. No significant calcifications. No adjacent inflammation or peripancreatic fluid collections. Pancreatic duct not dilated. GALLBLADDER: No identified stones by CT criteria. No inflammatory changes to suggest cholecystitis. ADRENAL GLANDS: No significant masses or asymmetry. RIGHT KIDNEY AND URETER: No solid masses. No significant calcifications. No hydronephrosis or hyd roureter. LEFT KIDNEY AND URETER: No solid masses. No significant calcifications. No hydronephrosis or hydr oureter. AORTA AND VESSELS: No aneurysm. No dissection. Renal arteries, SMA, celiac without stenosis. RETROPERITONEUM: No retroperitoneal adenopathy, hemorrhage or masses. BOWEL AND PERITONEAL CAVITY: No masses or inflammatory changes. No free fluid or peritoneal masses. APPENDIX: Normal. PELVIS: No mass. No free fluid. Normal bladder. ABDOMINAL WALL: No masses. No hernias. BONES: No significant or acute findings. OTHER: No other significant finding. IMPRESSION: NO SIGNIFICANT OR ACUTE FINDING IN THE ABDOMEN OR PELVIS ON CT SCAN WITH IV CONTRAST. TECHNICAL DOCUMENTATION: JOB ID: [id number] Quality ID # [id number]: Final reports with documentation of one or more dose reduction techniques (e.g., Au tomated exposure control, adjustment of the mA and/or kV according to patient size, use of iterative reconstruction technique) 2010 [employer]- All Rights Reserved Reading location - IP/workstation name: [email or web address]
[2017-08-16 12:50] VITALS: BP 149/101
[2017-08-16 12:51] LABS: T.VAGINALIS (WET MOUNT) NO TRICHOMONAS SEEN; WBCS (WET MOUNT) NO WBCS SEEN; YEAST (WET MOUNT) NO YEAST SEEN
[2017-08-16 12:52] LABS: EPITHELIALS (WET MOUNT) 3+ EPITHELIALS SEEN; RBCS (WET MOUNT) NO RBCS SEEN
[2017-08-16 14:29] LABS: CHLAM PCR NOT DETECTED (NOT DETECT); GON PCR NOT DETECTED (NOT DETECT)
== END 2017-08-16 14:03 | disposition home or self-care (01) ==
LOC: ER 06:08
DX: N83.202 Unspecified ovarian cyst, left side (principal); D25.9 Leiomyoma of uterus, unspecified; R10.30 Lower abdominal pain, unspecified; R19.5 Other fecal abnormalities; M54.30 Sciatica, unspecified side; J02.9 Acute pharyngitis, unspecified; Z79.899 Other long term (current) drug therapy; Z88.5 Allergy status to narcotic agent; Z88.2 Allergy status to sulfonamides; Z87.442 Personal history of urinary calculi
CPT/HCPCS: 36415; 74177; 76830; 80053; 81001; 81025; 82272; 83690; 85025; 87070; 87077; 87086; 87210; 87491; 87591; 87880; 93976; 99284